=== PATIENT | female | born 1980 | race Caucasian/White ===

== ENCOUNTER 2016-04-30 08:54 | Emergency (ER) | payer BC ==
--- NOTE | 2016-04-30 09:06 | ED ---
General Adult HPI - General Stated complaint: CHEST PAIN Time Seen by Provider: 04/30/16 09:05 Source: RN notes reviewed, old records reviewed - History of Present Illness Initial comments: This is a 28-year-old female here today for chest pain. Patient is left-sided chest and underneath her left breast. Patient's eyes medical history aside from history of smoking. No strong family history of heart disease, patient concerned of her heart. This patient's for 3 days worse with a deep breath she thinks worse when she eats. She hasn't think anything helps with her pain. She knows no rash, no fever no cough congestion. No history of DVT no travel history of PE - Related Data Home Medications Medication Instructions Recorded Confirmed Multivitamins, Thera [Multivitamin 1 tab PO DAILY 04/30/16 04/30/16 (formulary)] Allergies Allergy/AdvReac Type Severity Reaction Status Date / Time Sulfa (Sulfonamide Allergy Rash/Hives Verified 04/30/16 09:50 Antibiotics) Review of Systems ROS Statement: Those systems with pertinent positive or pertinent negative responses have been documented in the HPI. ROS Other: All systems not noted in ROS Statement are negative. General Exam General appearance: alert, in no apparent distress Head exam: Present: atraumatic, normocephalic, normal inspection Eye exam: Present: normal appearance, PERRL, EOMI. Absent: scleral icterus, conjunctival injection, periorbital swelling ENT exam: Present: normal exam, mucous membranes moist Neck exam: Present: normal inspection. Absent: tenderness, meningismus, lymphadenopathy Respiratory exam: Present: normal lung sounds bilaterally. Absent: respiratory distress, wheezes, rales, rhonchi, stridor Cardiovascular Exam: Present: regular rate, normal rhythm, normal heart sounds. Absent: systolic murmur, diastolic murmur, rubs, gallop, clicks GI/Abdominal exam: Present: soft, normal bowel sounds. Absent: distended, tenderness, guarding, rebound, rigid Extremities exam: Present: normal inspection, full ROM, normal capillary refill. Absent: tenderness, pedal edema, joint swelling, calf tenderness Back exam: Present: normal inspection Neurological exam: Present: alert, oriented X3, CN II-XII intact Psychiatric exam: Present: normal affect, normal mood Skin exam: Present: warm, dry, intact, normal color. Absent: rash Course Vital Signs 04/30/16 04/30/16 04/30/16 08:58 09:05 09:12 Temperature 97.8 F Pulse Rate 85 Pulse Rate [ 88 Bilateral Radial] Respiratory 14 14 Rate Blood Pressure 121/67 O2 Sat by Pulse 100 Oximetry 04/30/16 04/30/16 04/30/16 09:14 10:48 11:55 Temperature 98.2 F Pulse Rate 74 64 61 Pulse Rate [ Bilateral Radial] Respiratory 14 15 18 Rate Blood Pressure 106/63 123/61 O2 Sat by Pulse 100 100 100 Oximetry - Reevaluation(s) Reevaluation #1: At this time patient is without chest pain or shortness of breath EKG Findings - EKG Comments: EKG Findings:: EKG shows normal sinus rhythm rate 74, MS 136, QRS 80, QTC 401 Medical Decision Making - Medical Decision Making 36 female tear with left chest pain left pain under left breast. No radiation of pain no shortness of breath no cardiac risk factors. Patient is low cardiac risk pain greater than one day. Patient's troponin EKG and x-ray are negative. Patient can be discharged home - Lab Data Result diagrams: 04/30/16 09:10 04/30/16 09:10 Lab Results 04/30/16 04/30/16 04/30/16 Range/Units 09:10 09:10 09:10 WBC (3.8-10.6) k/uL RBC (3.80-5.40) m/uL Hgb (11.4-16.0) gm/dL Hct (34.0-46.0) % MCV (80.0-100.0) fL MCH (25.0-35.0) pg MCHC (31.0-37.0) g/dL RDW (11.5-15.5) % Plt Count (150-450) k/uL Neutrophils % % Lymphocytes % % Monocytes % % Eosinophils % % Basophils % % Neutrophils # (1.3-7.7) k/uL Lymphocytes # (1.0-4.8) k/uL Monocytes # (0-1.0) k/uL Eosinophils # (0-0.7) k/uL Basophils # (0-0.2) k/uL PT (9.0-12.0) sec INR (<1.1) APTT (22.0-30.0) sec D-Dimer 0.32 (<0.60) mg/L FEU Sodium (137-145) mmol/L Potassium (3.5-5.1) mmol/L Chloride (98-107) mmol/L Carbon Dioxide (22-30) mmol/L Anion Gap mmol/L BUN (7-17) mg/dL Creatinine (0.52-1.04) mg/dL Est GFR (MDRD) Af Amer (>60 ml/min/1.73 sqM) Est GFR (MDRD) Non-Af (>60 ml/min/1.73 sqM) Glucose (74-99) mg/dL Calcium (8.4-10.2) mg/dL Phosphorus 3.2 (2.5-4.5) mg/dL Magnesium (1.6-2.3) mg/dL Total Bilirubin (0.2-1.3) mg/dL AST (14-36) U/L ALT (9-52) U/L Alkaline Phosphatase (38-126) U/L Total Creatine Kinase 95 (30-135) U/L CK-MB (CK-2) <0.2 (0.0-2.4) ng/mL CK-MB (CK-2) Rel Index Troponin I <0.012 (0.000-0.034) ng/mL Total Protein (6.3-8.2) g/dL Albumin (3.5-5.0) g/dL Lipase 99 (23-300) U/L 04/30/16 04/30/16 04/30/16 Range/Units 09:10 09:10 09:10 WBC 8.9 (3.8-10.6) k/uL RBC 4.62 (3.80-5.40) m/uL Hgb 14.5 (11.4-16.0) gm/dL Hct 43.9 (34.0-46.0) % MCV 95.0 (80.0-100.0) fL MCH 31.5 (25.0-35.0) pg MCHC 33.2 (31.0-37.0) g/dL RDW 12.3 (11.5-15.5) % Plt Count 256 (150-450) k/uL Neutrophils % 71 % Lymphocytes % 21 % Monocytes % 4 % Eosinophils % 2 % Basophils % 0 % Neutrophils # 6.3 (1.3-7.7) k/uL Lymphocytes # 1.8 (1.0-4.8) k/uL Monocytes # 0.3 (0-1.0) k/uL Eosinophils # 0.2 (0-0.7) k/uL Basophils # 0.0 (0-0.2) k/uL PT 10.3 (9.0-12.0) sec INR 1.0 (<1.1) APTT 24.2 (22.0-30.0) sec D-Dimer (<0.60) mg/L FEU Sodium 141 (137-145) mmol/L Potassium 4.1 (3.5-5.1) mmol/L Chloride 105 (98-107) mmol/L Carbon Dioxide 22 (22-30) mmol/L Anion Gap 14 mmol/L BUN 12 (7-17) mg/dL Creatinine 0.97 (0.52-1.04) mg/dL Est GFR (MDRD) Af Amer >60 (>60 ml/min/1.73 sqM) Est GFR (MDRD) Non-Af >60 (>60 ml/min/1.73 sqM) Glucose 100 H (74-99) mg/dL Calcium 10.2 (8.4-10.2) mg/dL Phosphorus (2.5-4.5) mg/dL Magnesium 1.8 (1.6-2.3) mg/dL Total Bilirubin 1.8 H (0.2-1.3) mg/dL AST 18 (14-36) U/L ALT 19 (9-52) U/L Alkaline Phosphatase 37 L (38-126) U/L Total Creatine Kinase (30-135) U/L CK-MB (CK-2) (0.0-2.4) ng/mL CK-MB (CK-2) Rel Index Troponin I (0.000-0.034) ng/mL Total Protein 7.7 (6.3-8.2) g/dL Albumin 4.5 (3.5-5.0) g/dL Lipase (23-300) U/L - Radiology Data Radiology results: report reviewed, image reviewed Disposition Clinical Impression: Chest pain, Atypical chest pain Disposition: HOME SELF-CARE Condition: Good Instructions: Chest Pain (ED) Referrals: None,Stated [Primary Care Provider] - 1-2 days
[2016-04-30] MEDS ORDERED: SODIUM CHLORIDE 0.9% 1,000 ML IV STA (09:42)
[2016-04-30 09:56] LABS: Phosphorous 3.2 mg/dL (2.5-4.5)
[2016-04-30] MEDS ORDERED: KETOROLAC 30 MG/ML 1 ML VIAL IVP STA (10:57)
[2016-04-30] MEDS ORDERED: MAG HYDROX/AL HYDROX/SIMETH 30 ML, HYOSCYAMINE ELIXIR 10 ML, CIMETIDINE HCL 300 MG PO STA ×3 (10:58)
[2016-04-30 11:06] LABS: Basophils % (A) 0 %; CH 31.6; CHCM 33.4; Eosinophils # (A) 0.2 k/uL (0-0.7); Eosinophils % (A) 2 %; HCT 43.9 % (34.0-46.0); HDW 2.09; HGB 14.5 gm/dL (11.4-16.0); Luc # (Auto) 0.21; Luc % (Auto) 2; Lymphocytes # (A) 1.8 k/uL (1.0-4.8); Lymphocytes % (A) 21 %; MCH 31.5 pg (25.0-35.0); MCHC 33.2 g/dL (31.0-37.0); Mean Platelet Volume 8.6; Monocytes # (A) 0.3 k/uL (0-1.0); Monocytes % (A) 4 %; Neutrophils # (A) 6.3 k/uL (1.3-7.7); Neutrophils % (A) 71 %; RBC 4.62 m/uL (3.80-5.40); RDW 12.3 % (11.5-15.5); WBC 8.9 k/uL (3.8-10.6); WBC (Perox) 8.34
--- NOTE | 2016-04-30 11:07 | XR ---
EXAMINATION TYPE: XR chest 2V DATE OF EXAM: 04/30/2016 11:02 AM COMPARISON: NONE TECHNIQUE: PA and lateral views submitted. HISTORY: Pain upon inspiration. FINDINGS: The lungs are clear and there is no pneumothorax, pleural effusion, or focal pneumonia. IMPRESSION: 1. No acute process.
[2016-04-30 11:15] LABS: ALT 19 U/L (9-52); AST 18 U/L (14-36); Alkaline Phosphatase 37 U/L (38-126); Anion Gap 14 mmol/L; Blood Urea Nitrogen 12 mg/dL (7-17); Calcium 10.2 mg/dL (8.4-10.2); Carbon Dioxide 22 mmol/L (22-30); Chloride 105 mmol/L (98-107); Glucose 100 mg/dL (74-99); Magnesium 1.8 mg/dL (1.6-2.3); Non-African American GFR(MDRD) >60 (>60 ml/min/1.73 sqM); Potassium 4.1 mmol/L (3.5-5.1); Sodium 141 mmol/L (137-145); Total Bilirubin 1.8 mg/dL (0.2-1.3); Total Protein 7.7 g/dL (6.3-8.2)
[2016-04-30 11:16] LABS: Creatine Kinase 95 U/L (30-135)
[2016-04-30 11:21] LABS: Partial Thromboplastin Time 24.2 sec (22.0-30.0); Prothrombin Time 10.3 sec (9.0-12.0)
[2016-04-30 11:56] VITALS: BP 123/61; PULSE 61; RESP 18; TEMP 98.2
[2016-04-30 12:14] LABS: Creatine Kinase MB <0.2 ng/mL (0.0-2.4); Troponin I <0.012 ng/mL (0.000-0.034)
== END 2016-04-30 11:56 | disposition home or self-care (01) ==
LOC: EC 08:54
DX: R07.89 Other chest pain (principal); F17.200 Nicotine dependence, unspecified, uncomplicated; Z82.49 Family history of ischemic heart disease and other diseases of the circulatory system; Z88.2 Allergy status to sulfonamides; Z79.899 Other long term (current) drug therapy
CPT/HCPCS: 96374 ×2; 99285 ×2; 36415; 93005; 85379; 80053; 82550; 82553; 83690; 83735; 84100; 84484; 85025; 85610; 85730; 71020; J1885

== ENCOUNTER → 2016-10-08 | Outpatient (CLI) | payer BC ==
[2016-10-08 16:14] LABS: Basophils # (A) 0.1 k/uL (0-0.2); Basophils % (A) 0 %; CH 31.2; CHCM 33.3; Eosinophils # (A) 0.1 k/uL (0-0.7); Eosinophils % (A) 1 %; HCT 41.1 % (34.0-46.0); HDW 2.06; Luc # (Auto) 0.22; Luc % (Auto) 2; Lymphocytes # (A) 3.2 k/uL (1.0-4.8); Lymphocytes % (A) 25 %; MCV 94.2 fL (80.0-100.0); Mean Platelet Volume 7.6; Monocytes # (A) 0.6 k/uL (0-1.0); Monocytes % (A) 4 %; Neutrophils # (A) 8.3 k/uL (1.3-7.7); Neutrophils % (A) 67 %; RBC 4.37 m/uL (3.80-5.40); RDW 12.2 % (11.5-15.5); WBC 12.4 k/uL (3.8-10.6)
== END | disposition home or self-care (01) ==
LOC: LABPAT 15:41
PROVIDERS: ATTEND Obstetrics & Gynecology
DX: Z01.812 Encounter for preprocedural laboratory examination (principal); N92.0 Excessive and frequent menstruation with regular cycle
CPT/HCPCS: 85025

== ENCOUNTER 2016-10-19 09:11 | Day surgery (SDC) | payer BC ==
[2016-10-11 09:08] VITALS: BMI 23.3
--- NOTE | 2016-10-13 18:12 | HP ---
HISTORY AND PHYSICAL This is a 36-year-old, white female, 1, para 1, 0, 0, 1 who recently had a Mirena IUD removed in the office, secondary to heavy and persistent vaginal bleeding. In addition, she complained of abdominal bloating and cramping with intercourse. She would at this time want a laparoscopic tubal ligation and NovaSure endometrial ablation. REVIEW OF SYSTEMS: Is otherwise negative. The patient has a child and is certain that she wants no further children. She understands that tubal ligation does have a small but real failure rate, and that if she should ever find herself with signs and symptoms of , a test would be warranted. PAST MEDICAL HISTORY: Is significant for metrorrhagia in the past. PAST SURGERIES: Include breast biopsy, cyst removal of the wrist, and left breast lumpectomy of benign pathology. CURRENT MEDICATIONS: Evening of primrose oil daily, One a Day vitamin daily, Tearisol vaginal cream p.r.n., and benzoyl peroxide erythromycin ointment. ALLERGIES: Include sulfa to which reports a rash with hives and difficulty breathing. She also has seasonal allergies. FAMILY HISTORY: Significant for bipolar disorder in her mother, diabetes, heart disease, hypertension, and stroke. REPRODUCTIVE HISTORY: Significant for vaginal delivery in 1998 without issues. SOCIAL HISTORY: The patient drinks 1-4 alcoholic beverages weekly, she is , she uses moderate exercise weekly, she currently smokes less than 1/2 pack per day tobacco. PHYSICAL EXAM: This is a pleasant white female, 5 feet 6 inches, 144 pounds, blood pressure 102/70. HEENT exam reveals good dentition, no thyromegaly, no palpable cervical lymphadenopathy. Breast exam reveals breasts to be bilaterally symmetric to inspection with no skin dimpling, nipple discharge, axillary adenopathy or discernible lesions or masses. ABDOMEN: Soft, nontender, scaphoid, active bowel sounds. There is no CVA tenderness. CHEST: Clear to auscultation in all gomez. The cardiac exam reveals a regular rate and rhythm without murmur, click or rub. The extremities reveal no edema, there are good peripheral pulses and normal range of motion. On pelvic exam the cervix appears healthy, Pap is up to date. Uterus is small, mobile, smooth and nontender, sounded to 8 cm in the anteverted position. Adnexa are negative to palpation bilaterally. IMPRESSION: Dysfunctional uterine bleeding, likely secondary to IUD which has been removed in the office. The patient wishing endometrial ablation along with tubal ligation utilizing Filshie clips. PLAN: We will proceed with hysteroscopy and NovaSure endometrial ablation, along with laparoscopic tubal ligation utilizing Filshie clips. The risks, benefits and alternatives of this procedure have been discussed in detail. She understands the unlikely but possible occurrence of in the past, and would seek medical attention if she ever found herself with a positive test. She understands the risks of surgery to include but not be exclusive of bleeding, infection, perforation or damage to the bowel, bladder, ureters, blood vessels, or indeed any pelvic or abdominal organs. She understands the risks of anesthesia to include aspiration, nerve damage, or even . The ACOG pamphlet on these procedures have been given to the patient and she has reviewed them in detail. I believe she understands our discussion with no reservation question. MMODL / IJN: [id number] /
[~2016-10-19 09:11] MED LIST: DEXAMETHASONE SOD PHOSPHATE 10 MG/ML 1 ML VIAL IV ONE; HYDROmorphone 1 MG/ML 1 ML SYRINGE IVP PRN; LACTATED RINGERS 1,000 ML IV SCH; LIDOCAINE 1% 20 ML VIAL (10MG/ML) FOR IV START INTRADERMA PRN; ONDANSETRON 4 MG/2 ML VIAL IVP ONE; Pre Op ABX Message 1 EACH MISC MISCELLANE ONE; SCOPOLAMINE 1.5MG/72HR PATCH TRANSDERM ONE
[2016-10-19] MEDS ORDERED: ROCURONIUM BROMIDE 10 MG/ML 10 ML VIAL IV ONE (10:17)
[2016-10-19] MEDS ORDERED: GLYCOPYRROLATE 0.2 MG/ML 2 ML VIAL ONE (10:17)
[2016-10-19] MEDS ORDERED: fentaNYL (PF) 50 MCG/ML 2 ML AMP ONE (10:17)
[2016-10-19] MEDS ORDERED: PROPOFOL 10 MG/ML 20 ML VIAL IV ONE (10:17)
[2016-10-19] MEDS ORDERED: LIDOCAINE 1% INJ 10MG/ML (20 ML MDV) ONE (10:17)
[2016-10-19] MEDS ORDERED: MIDAZOLAM 2 MG/2 ML VIAL ONE (10:17)
[2016-10-19] MEDS ORDERED: NEOSTIGMINE 1 MG/ML 10 ML VIAL ONE (10:17)
[2016-10-19] MEDS ORDERED: KETOROLAC 30 MG/ML 1 ML VIAL ONE (10:17)
[2016-10-19] MEDS ORDERED: BUPIVACAINE-EPI 0.5%-1:200,000 10 ML VIAL SQ ONE ×3 (10:46→10:52)
--- NOTE | 2016-10-19 10:59 | P.OP ---
Date of Procedure: 10/19/16 Preoperative Diagnosis: Polymenorrhea, undesired fertility Postoperative Diagnosis: Same, normal-appearing ovaries bilaterally Procedure(s) Performed: Implants: Hysteroscopy, NovaSure ablation, laparoscopic tubal ligation with Filshie clips Anesthesia: APOORVA Surgeon: Naa Mathis Braille Duplicating Machine Operator #1: Stated None Estimated Blood Loss (ml): 10 IV fluids (ml): 500 Urine output (ml): 150 Pathology: none sent Condition: stable Disposition: PACU Indications for Procedure: Operative Findings: Normal-appearing ovaries bilaterally. Smooth uterine surface, no fibroids. No evidence of pelvic endometriosis. Intrauterine cavity negative. Description of Procedure: Patient is brought to the operating suite and placed in the dorsal lithotomy position after general anesthetic is administered without difficulty. The cervix vagina perineum and abdomen are all prepped and draped in the usual sterile fashion. Examination under anesthesia reveals a small mobile anteverted uterus, negative adnexa bilaterally. Bladder is drained for 150 mL of clear yellow urine. Weighted speculum was placed into the vagina and a double-tooth tenaculum was used to grasp the anterior lip of the cervix. An acorn cannula is attached to this and the speculum is removed. Attention is then drawn to the abdominal cavity. A small infraumbilical incision is made. Varies needle is placed and placement is checked with hanging drop technique. The abdomen is then insufflated under low filling pressures of approximate 5 mmHg for a total of approximately 4 L of gas. The varies needle is removed. Trocar is then placed and placement is noted to be atraumatic. A second incision is made suprapubically and a second trocar is placed under direct visualization, again entrances atraumatic. The right fallopian tube is visualized in its entirety to the fimbriated end. A Filshie clip is placed in the isthmic portion of the tube, with care to traverse the entire diameter of the tube into the mesal salpinx. Ovary appeared normal. Same procedure is carried out on the contralateral tube, again fimbriated and is visualized clearly and the clip is placed through the entire diameter of the tube into the mesal salpinx to assure good application. This ovary also appears normal. Inspection of the pelvis reveals no adhesions, no endometriosis, no other anomalies. Appendix appears normal. The CO2 gas was allowed to diffuse and the small incisions are closed with a subcuticular stitch of 4-0 undyed Vicryl. They are injected with a total of 5 mL of Marcaine with epinephrine to aid in postoperative analgesia. Attention is drawn and then back to the perineal body. Speculum is replaced, uterus sounds to a depth of 9.0 cm in the anteverted position. Cervical length is 3 cm. Cervix is dilated systematically with Hanks dilators. The hysteroscope was placed, cavity is distended with saline. Cavity appears to contain proliferative-type shaggy tissue. No fibroids septa or defects are appreciated. Hysteroscope was removed. NovaSure wand is placed and seated properly. Uterine depth of 6.0 cm, width of 4.4 cm is calibrated on the machine. For 59 seconds with a power of 145 W the procedure is carried out. When this is completed, the wand is removed. Hysteroscope was once again placed , cavity is noted to be uniformly blanched. The tenaculum was removed from the cervix. Cervix is clean and dry. Small incisions are dressed. Toradol is given prior to leaving the operative suite. All sponge needle and enhancement counts are correct at the end of our procedure. Patient is brought back to the recovery room in very good condition with stable vital signs including a blood pressure 104/64, pulse 57, 100% O2 saturation. She will follow-up with me in the office in 2 weeks.
[2016-10-19 11:19] VITALS: TEMP 98.2
[2016-10-19] MEDS ORDERED: HYDROmorphone 1 MG/ML 1 ML SYRINGE IVP ONE ×2 (11:25→11:30)
[2016-10-19] MEDS ORDERED: LACTATED RINGERS 1,000 ML IV ONE (11:57)
[2016-10-19] MEDS ORDERED: HYDROcodone/APAP 7.5-325MG 1 EACH TAB PO ONE (13:09)
[2016-10-19 13:17] VITALS: RESP 18
[2016-10-19 13:18] VITALS: BP 107/61; PULSE 61
== END 2016-10-19 14:49 | disposition home or self-care (01) ==
LOC: OR 09:11
PROVIDERS: ATTEND Obstetrics & Gynecology
DX: Z30.2 Encounter for sterilization (principal); N92.0 Excessive and frequent menstruation with regular cycle; Z79.899 Other long term (current) drug therapy; J30.9 Allergic rhinitis, unspecified; Z88.2 Allergy status to sulfonamides; F17.200 Nicotine dependence, unspecified, uncomplicated
CPT/HCPCS: 81025; 58563; 58671; J2250; J1100; J2710; J2405; J2001; J3010; J1885; J1170; J2704